=== PATIENT | male | born 1965 | race African-American/Black ===

== ENCOUNTER 2018-02-05 13:52 | Emergency (ER) | payer SELFPAY ==
[~2018-02-05] VITALS: Ht 185.4 cm; Wt 127.3 kg
[2018-02-05] MEDS ORDERED: METO25TA6 PO (14:13)
[2018-02-05] MEDS ORDERED: METF850T2 PO (14:13)
[2018-02-05 14:17] LABS: GLUCOSE,POINT OF CARE 155 MG/DL (70-110)
[2018-02-05] MEDS ORDERED: METHOCARBAMOL 500 MG TABLET PO ONE (16:00)
[2018-02-05] MEDS ORDERED: KETOROLAC TROMETHAMINE 60 MG/2 ML VIAL IM ONE (16:00)
[2018-02-05 18:22] VITALS: BP 138/79
== END 2018-02-05 18:30 | disposition home or self-care (01) ==
LOC: EMS 13:54
DX: S13.4XXA Sprain of ligaments of cervical spine, initial encounter (principal); I10 Essential (primary) hypertension; E11.9 Type 2 diabetes mellitus without complications; V49.40XA Driver injured in collision with unspecified motor vehicles in traffic accident, initial encounter; Y93.89 Activity, other specified; Y92.89 Other specified places as the place of occurrence of the external cause; Y99.8 Other external cause status
CPT/HCPCS: 72040; 82962; 96372; 99284; J1885

== ENCOUNTER 2019-11-05 10:08 | Emergency (ER) | payer OTHER ==
[~2019-11-05] VITALS: Ht 188 cm; Wt 127.3 kg
[2019-11-05 10:27] LABS: GLUCOSE,POINT OF CARE 118 MG/DL (70-110)
[2019-11-05 10:55] VITALS: BP 109/90
== END 2019-11-05 11:36 | disposition home or self-care (01) ==
LOC: EMS 10:09
DX: I10 Essential (primary) hypertension (principal); E11.9 Type 2 diabetes mellitus without complications; E78.00 Pure hypercholesterolemia, unspecified; I25.2 Old myocardial infarction; F17.210 Nicotine dependence, cigarettes, uncomplicated; Z76.0 Encounter for issue of repeat prescription